=== PATIENT | male | born 1995 | race African-American/Black ===

== ENCOUNTER 2017-01-01 21:01 | Emergency (ER) | payer OTHER ==
[2017-01-01 21:12] VITALS: RESP 18
--- NOTE | 2017-01-01 22:07 | XR ---
EXAMINATION TYPE: XR hand complete LT DATE OF EXAM: 01/01/2017 10:02 PM COMPARISON: NONE HISTORY: Pain TECHNIQUE: 3 views FINDINGS: I see no fracture nor dislocation. Joint spaces are normal. IMPRESSION: Negative right hand exam.
--- NOTE | 2017-01-01 22:07 | XR ---
EXAMINATION TYPE: XR wrist complete RT DATE OF EXAM: 01/01/2017 10:02 PM COMPARISON: NONE HISTORY: Pain TECHNIQUE: 3 views FINDINGS: I see no fracture nor dislocation. There is a 5 mm bony density at the tip of the ulnar sty loid process consistent with old injury. Carpal bones are intact. IMPRESSION: No acute abnormality of the right wrist.
--- NOTE | 2017-01-01 22:12 | ED ---
Wound/Laceration HPI - General Chief Complaint: Wound/Laceration Stated Complaint: right wrist lac Time Seen by Provider: 01/01/17 21:24 Source: patient, RN notes reviewed Mode of arrival: EMS Limitations: physical limitation - History of Present Illness Initial Comments: 21-year-old male presents emergency Department chief complaint of right wrist laceration. Patient states this was cut by a window that broke. Patient states that he had bleeding so he was concerned. Patient states that the sinus. Patient's it states it is tender to touch the area. Patient denies any other symptoms with this. Patient denies any other injuries. Patient states he does have some left hand pain as well from the incident he does not know how he hurt his hand on the left side. Patient denies any recent fever, chills, shortness of breath, chest pain, back pain, abdominal pain, nausea vomiting, numbness or tingling, dysuria or hematuria, constipation or diarrhea, headaches or visual changes, or any other current symptoms. - Related Data Home Medications Medication Instructions Recorded Confirmed No Known Home Medications [No 01/01/17 01/01/17 Known Home Medications] Allergies Allergy/AdvReac Type Severity Reaction Status Date / Time No Known Allergies Allergy Verified 01/01/17 21:12 Review of Systems ROS Statement: Those systems with pertinent positive or pertinent negative responses have been documented in the HPI. ROS Other: All systems not noted in ROS Statement are negative. Past Medical History Past Medical History: No Reported History History of Any Multi-Drug Resistant Organisms: None Reported Past Surgical History: No Surgical Hx Reported Past Psychological History: No Psychological Hx Reported Smoking Status: Former smoker Past Alcohol Use History: None Reported Past Drug Use History: None Reported General Exam - General Exam Comments Initial Comments: General: The patient is awake and alert, in no distress, and does not appear acutely ill. Neck: The neck is supple, there is no tenderness. Cardiovascular: There is a regular rate and rhythm. No murmur, rub or gallop is appreciated. Respiratory: Lungs are clear to auscultation, respirations are non-labored, breath sounds are equal. No wheezes, stridor, rales, or rhonchi. Musculoskeletal: Sensation intact with 2+ pulses was 2 capillary refill throughout The right upper extremity. Full range of motion of right elbow wrist and hand. Patient does appear to have a decrease in renal laceration to the right wrist. 5/5 muscle strength testing throughout. Patient's left hand does have multiple small abrasions. Patient has full range motion 5/5 muscle strength testing with sensation intact. 2+ capillary refill. Neurological: CN II-XII intact, There are no obvious motor or sensory deficits. Coordination appears grossly intact. Speech is normal. Skin: Skin is warm and dry and no rashes or lesions are noted. Psychiatric: Normal mood and affect. Limitations: physical limitation Course Vital Signs 01/01/17 21:06 Temperature 99.4 F Pulse Rate 74 Respiratory 18 Rate Blood Pressure 168/67 O2 Sat by Pulse 97 Oximetry Procedures - Procedures Initial comment: The skin was anesthetized with 1% lidocaine. The laceration was then cleansed with Betadine and irrigated with normal saline. The wound was inspected, and there was no evidence of injury to deep structures. No foreign body was noted in the wound. A total of 5 skin sutures were placed utilizing 5-0 nylon to a right forearm laceration. Medical Decision Making - Medical Decision Making 21-year-old male presents to the emergency department with a chief complaint of right wrist laceration. This time patient went suture care. We discussed care follow-up return parameters. We discussed all patient's questions. He stated he understood the plan. questions were answered. He will be admitted. Disposition Clinical Impression: Laceration of right forearm, Abrasion of left hand Disposition: HOME SELF-CARE Condition: Stable Instructions: Laceration (ED) Additional Instructions: Please use medication as discussed. Please follow up with family doctor if symptoms have not improved over the next two days. Please return to the emergency room if your symptoms increase or worsen or for any other concerns. Please return to the emergency room in 8-10 days to have sutures removed. Please leave wound covered for the first 24-48 hours and then leave open to air after that time. Please use clean soap and water to clean the suture area to prevent scabbing over the top of your sutures. Please watch for any signs of infection which may include but not limited to increased pain, swelling, redness , fever or chills. Please return to the emergency room if any signs of infection do occur. Please return to the emergency room for any other concerns or complications. Referrals: Brandy Singh MD [STAFF PHYSICIAN] - 1-2 days Time of Disposition: 22:12
[2017-01-01 22:23] VITALS: BP 113/64; PULSE 72; TEMP 100
== END 2017-01-01 22:23 | disposition home or self-care (01) ==
LOC: EC 21:01
DX: S51.811A Laceration without foreign body of right forearm, initial encounter (principal); S60.512A Abrasion of left hand, initial encounter; Z87.891 Personal history of nicotine dependence; W26.8XXA Contact with other sharp object(s), not elsewhere classified, initial encounter
CPT/HCPCS: 12001; 99283